=== PATIENT | female | born 1985 | race Caucasian/White ===

== ENCOUNTER 2017-03-16 07:55 | Inpatient (IN) ==
[2017-03-16] MEDS ORDERED: CITRIC ACID/SODIUM CITRATE 30 ML UDCUP PO ONE (08:28)
[2017-03-16] MEDS ORDERED: FAMOTIDINE 20 MG/2 ML VIAL IV ONE (08:28)
[2017-03-16] MEDS ORDERED: ceFAZolin 2,000 MG in SODIUM CHLORIDE 0.9% 100 ML IV ONE (08:28)
[2017-03-16] MEDS ORDERED: LACTATED RINGERS 1,000 ML IV ONE (08:33)
[2017-03-16 09:04] LABS: Basophils % 0.3 % (0.0-0.8); Eosinophils # 0.1 10*3/uL (0.0-0.87); Eosinophils % 1.3 % (0.00-10.9); Hematocrit 39.8 VOL% (35.7-47.0); Hemoglobin 13.7 GM/DL (12.0-16.0); Immature Granulocytes Absolute 0.11 #; Lymphocytes # 1.8 10*3/uL (1.4-4.0); Lymphocytes % 16.7 % (21.3-54.2); Mean Corpuscular HGB Conc 34.4 GM/DL (32-36); Mean Corpuscular Hemoglobin 32 PG (27-34); Mean Corpuscular Volume 91.5 FL (87-102); Mean Platelet Volume 11.8 FL (9.6-12.0); Monocytes # 0.7 10*3/uL (0.11-0.8); Monocytes % 6.9 % (1.7-12.7); Neutrophils # 7.8 10*3/uL (1.4-7.4); Neutrophils % 73.8 % (38.7-73.9); Platelet Count 185 T/CUMM (130-400); Red Blood Count 4.35 MC/CUMM (3.8-5.5); Red Cell Distribution Width 12.6 % (9.3-17.3); White Blood Count 10.6 T/CUMM (4-12)
[2017-03-16] MEDS ORDERED: OXYTOCIN 10 UNIT/ML VIAL ONE (09:11)
[2017-03-16] MEDS ORDERED: OXYTOCIN 10 UNIT/ML VIAL IM ONE (09:15)
[2017-03-16] MEDS ORDERED: OXYTOCIN/LR 30 UNIT/1,000 ML BAG IV ONE (09:15)
[2017-03-16 09:39] LABS: Alanine Aminotransferase 21 U/L (13-56); Albumin 3.1 G/DL (3.4-5.0); Alkaline Phosphatase 130 U/L (45-117); Aspartate Amino Transferase 18 U/L (0-37); Bilirubin,Total < 0.39 MG/DL (0.2-1.0); Blood Urea Nitrogen 11 MG/DL (7-18); Calcium 8.6 MG/DL (8.5-10.1); Glucose 85 MG/DL (74-106); Osmolality,Calculated 270.8 MOS/KG (273-304); Potassium 4.1 MMOL/L (3.5-5.1); Sodium 137 MMOL/L (136-145); Total Protein 6.8 G/DL (6.4-8.3)
[2017-03-16] MEDS ORDERED: ONDANSETRON 4 MG/2 ML VIAL ONE (09:40)
[2017-03-16] MEDS ORDERED: PHENYLEPHRINE 1 MG/10 ML SYRINGE IV ONE (09:40)
--- NOTE | 2017-03-16 09:53 | OB/GYN History & Physical ---
History of Present Illness Chief complaint: 39 weeks gestation, repeat section and bilateral tubal ligation History of present illness: Ms. Marquez is a 31 year old female 2 para 139 weeks gestation who presents for repeat section bilateral tubal ligation, risks and benefits were thoroughly discussed she is in full agreement. heart tones are category 1, no leaking of fluid, no vaginal bleeding, no severe pelvic pain. Patient has a known history of thyroid disease which is been well controlled. 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 - Constitutional General appearance: normal weight - Head Head exam: Present: normal inspection - Eye Eye exam: Present: EOMI Pupils: Present: EMILE - ENT ENT exam: Present: normal exam - Neck Neck exam: Present: normal inspection - Respiratory Respiratory exam: Present: clear to auscultation bilaterally - Breast Breasts: as per HPI Menstruation: as per HPI - Cardiovascular Cardiovascular exam: Present: regular rate and rhythm - GI/Abdominal GI/Abdominal exam: Present: normal bowel sounds - Extremities Exam Extremities exam: Present: normal inspection - Psychiatric Psychiatric exam: Present: normal affect - Skin Skin exam: Present: normal color Assessment and Plan (1) Status post repeat low transverse section Status: Acute Current Visit: No Results - Labs CBC & BMP: 03/16/17 08:58 03/16/17 08:58
--- NOTE | 2017-03-16 10:49 | Anesthesia Post-Op ---
Anesthesia Post OP - Post Ansesthetic Evaluation Patient seen in post op: Yes Resp: within normal limits CV: within normal limits Mental: within normal limits Temp: within normal limits [id number]: within normal limits Nausea and Vomiting: within normal limits Pain: within normal limits
[2017-03-16] MEDS ORDERED: fentaNYL 100 MCG/2 ML VIAL ONE (10:53)
[2017-03-16] MEDS ORDERED: MORPHINE 10 MG/10 ML VIAL ONE (10:54)
[2017-03-16 11:21] LABS: Apearance,Urine CLEAR (Clear); Bacteria,Urine Occasional /HPF (Few); Bilirubin,Urine Negative (Negative); Blood, Urine Negative (Negative); Glucose,Urine (UA) Negative (Negative); Ketones,Urine Negative (Negative); Mucus,Urine Occasional /LPF (Occasional); Nitrite,Urine Negative (Negative); Protein,Urine Negative; RBC,Urine 1 /HPF (0-4); Squamous Epithelial Cell,Urine Occasional /HPF (0-10); Urine Color Yellow (Yellow); Urine Specific Gravity 1.021 (1.001-1.035); Urine Urobilinogen < 2.0 EU/DL (0.2-1.0); WBC,Urine 1 /HPF (0-6)
[2017-03-16] MEDS ORDERED: PROMETHAZINE 25 MG/1 ML VIAL IM PRN (11:32)
[2017-03-16] MEDS ORDERED: diphenhydrAMINE 50 MG/1 ML VIAL IM PRN (13:06)
[2017-03-16] MEDS: LACTATED RINGERS 1,000 ML IV SCH ×2 (15:40→22:00)
[2017-03-16 18:36] LABS: Hematocrit 35.8 VOL% (35.7-47.0); Hemoglobin 12.1 GM/DL (12.0-16.0)
[2017-03-16] MEDS ORDERED: HYDROmorphone 2 MG/1 ML VIAL IV SCH (19:30)
[2017-03-16] MEDS ORDERED: HYDROmorphone 2 MG/1 ML VIAL IV PRN (19:32)
[2017-03-16] MEDS ORDERED: ONDANSETRON 4 MG/2 ML VIAL IV PRN (19:34)
[2017-03-17] MEDS: LACTATED RINGERS 1,000 ML IV SCH (04:50)
[2017-03-17] MEDS ORDERED: IBUPROFEN 800 MG TABLET ONE (05:04)
[2017-03-17] MEDS: IBUPROFEN 800 MG TABLET PO PRN ×3 (05:10→22:34)
[2017-03-17 05:44] LABS: Basophils % 0.2 % (0.0-0.8); Eosinophils # 0.1 10*3/uL (0.0-0.87); Hematocrit 38.2 VOL% (35.7-47.0); Hemoglobin 12.8 GM/DL (12.0-16.0); Immature Granulocytes % 0.6 %; Immature Granulocytes Absolute 0.07 #; Lymphocytes # 1.3 10*3/uL (1.4-4.0); Lymphocytes % 10.9 % (21.3-54.2); Mean Corpuscular HGB Conc 33.5 GM/DL (32-36); Mean Corpuscular Hemoglobin 32 PG (27-34); Mean Corpuscular Volume 94.1 FL (87-102); Mean Platelet Volume 11.7 FL (9.6-12.0); Monocytes # 0.9 10*3/uL (0.11-0.8); Monocytes % 7.3 % (1.7-12.7); Neutrophils # 9.8 10*3/uL (1.4-7.4); Platelet Count 155 T/CUMM (130-400); Red Blood Count 4.06 MC/CUMM (3.8-5.5); Red Cell Distribution Width 12.9 % (9.3-17.3); White Blood Count 12.3 T/CUMM (4-12)
[2017-03-17] MEDS: LEVOTHYROXINE 100 MCG TABLET PO SCH (06:52)
[2017-03-17] MEDS ORDERED: SIMETHICONE CHEW 80 MG TABLET PO PRN (07:11)
[2017-03-17] MEDS: MAGNESIUM HYDROXIDE SUSP 30 ML UDCUP PO PRN ×2 (08:50→20:49)
[2017-03-17] MEDS: DOCUSATE SODIUM 100 MG CAPSULE PO SCH ×2 (08:50→20:49)
--- NOTE | 2017-03-17 10:10 | OB/GYN Progress Note ---
Assessment and Plan (1) Status post repeat low transverse section Status: Acute Assessment and plan: Initiate routine postop orders. Current Visit: No INVENTORY AND PRICING ASSOCIATE - PN: Subj Interval history: Stable with no complaints. Bonding well with infant. Exam INVENTORY AND PRICING ASSOCIATE - Constitutional Vitals: Vital Signs Temp Pulse Resp BP Pulse Ox 03/17/17 07:19 97.4 F L 89 20 108/68 97 03/17/17 04:00 95.8 F L 82 20 109/58 97 03/17/17 02:00 18 03/17/17 00:00 97.6 F 94 H 20 108/68 97 03/16/17 20:00 98 F 86 19 116/66 96 03/16/17 16:42 97.5 F L 76 19 120/70 97 03/16/17 15:42 80 18 123/72 98 03/16/17 14:45 65 19 111/68 98 03/16/17 14:15 64 18 113/71 98 03/16/17 13:45 97.3 F L 66 18 117/65 98 03/16/17 12:00 97.2 F L 63 22 106/58 General appearance: no acute distress - Antepartum / Post Post Exam Breast: bilateral: normal Abdomen obstetrics: Present: bowel sounds normal Vagina: Present: discharge (light lochia rubra) Uterus exam: Present: enlarged Anus/Rectum: Present: normal perianal skin - Gyencological / Post Surgical Gynocological Exam Lungs: bilateral: normal Chest: Normal S1, Normal S2 Extremities INVENTORY AND PRICING ASSOCIATE: Present: normal Abdomen obstetrics progress note: Present: normal appearance, soft Incision OB: Present: normal, intact - Head Head exam: Present: normal inspection - Respiratory Respiratory exam: Present: clear to auscultation bilaterally - Cardiovascular Cardiovascular exam: Present: regular rate and rhythm - GI/Abdominal GI/Abdominal exam: Present: normal bowel sounds, soft - Extremities Exam Extremities exam: Present: normal inspection - Neurological Exam Neurological exam: Present: alert, oriented X3 - Psychiatric Psychiatric exam: Present: normal affect, normal mood - Skin Skin exam: Present: normal color, warm Results - Labs CBC & BMP: 03/17/17 05:26 03/16/17 08:58
[2017-03-17] MEDS ORDERED: RHO(D) IMMUNE GLOBULIN 300 MCG SYRINGE IM ONE (14:39)
[2017-03-18] MEDS: LEVOTHYROXINE 100 MCG TABLET PO SCH (06:44)
[2017-03-18 07:42] VITALS: BP 119/69
--- NOTE | 2017-03-18 09:20 | Discharge Summary ---
Hospital Course - Hospital Course Hospital Course: Ms. Marquez is a 32-year-old presented for repeat section due to previous section at term. She delivered a viable with no complications. She has followed a normal postoperative course and she has done well. Her incision is well approximated without signs of infection. She is voiding without difficulty. Her bowel sounds are positive and she has had a normal bowel movement. Her vital signs and lab values are stable. Her fundus is firm and midline. She is bonding well with her . She will be discharged home with prescriptions for pain and a follow-up appointment in our office. Diagnosis - Discharge Diagnosis (1) Status post repeat low transverse section Status: Acute Specialty Discharge - Follow Up or Referrals Follow up with: Winnie Burnham MD [Physician] - 2 Weeks Discharge Plan - Discharge Data Disposition: Disch To Home/Self Care Condition at Discharge: Stable Discharge Diet: advance to your usual diet, regular diet Activity: no lifting, no prolonged standing Hygiene: may shower Weight Bearing at Discharge: partial weight bearing Driving: not until seen by doctor Contact your physician if you experience:: fever over 101, pain uncontrolled by pain medications - Discharge Medications New Ibuprofen Tab [Motrin Tab] 800 mg PO Q6H PRN #30 tablet PRN Reason: Abdominal Pain Levothyroxine Tab [Synthroid Tab] 100 mcg PO DAILY@0700 #0 tablet HYDROcodone/ACETAMIN 5-325 [[place] 5-325] 2 tablet PO Q4H PRN #30 tablet PRN Reason: Pain Moderate (4-7) No Action Levothyroxine Tab [Synthroid Tab] 1 tablet PO DAILY Folic Acid 0.8 mg PO DAILY Pnv No.95/Ferrous Fum/Folic AC [ Tablet] 1 tablet PO DAILY - Follow Up or Referral Follow Up: Winnie Burnham MD [Physician] - - Forms/Instructions Instructions: Section (DC), Surgical Site Infections (GEN), Bleeding (DC) Exam - Constitutional Vitals: Period Temp Pulse Resp BP Sys/Salas Pulse Ox Last 24 Hr 97.4 F-98 F 82-96 18-20 109-131/68-75 95-99 General appearance: no acute distress - Respiratory Respiratory exam: Present: clear to auscultation bilaterally - Cardiovascular Cardiovascular exam: Present: regular rate and rhythm - GI/Abdominal GI/Abdominal exam: Present: normal bowel sounds, soft - Neurological Exam Neurological exam: Present: alert, oriented X3 - Psychiatric Psychiatric exam: Present: normal affect, normal mood - Skin Skin exam: Present: normal color, warm DS: Provider Date of admission: 03/16/17 08:28 Primary care physician: . No PCP Attending physician on admission: Winnie Burnham MD Consults: 03/16/17 08:28 Consult to Anesthesiology [CONS] Routine Consulting Provider: Reason for Anesthesiology: Pre-op Clearance Discharging clinician: Sangeeta Bob CNM Expected date of discharge: 03/18/17
[2017-03-18] MEDS: IBUPROFEN 800 MG TABLET PO PRN (10:10)
[2017-03-18] MEDS: MAGNESIUM HYDROXIDE SUSP 30 ML UDCUP PO PRN (10:10)
[2017-03-18] MEDS: DOCUSATE SODIUM 100 MG CAPSULE PO SCH (10:21)
== END 2017-03-18 13:30 | disposition home or self-care (01) | DRG 766 ==
LOC: N.LDOUT 07:55 → N.LD 08:01 → N.OB 13:39
PROVIDERS: ADMIT Obstetrics & Gynecology; ATTEND Obstetrics & Gynecology